=== PATIENT | female | born 1960 | race Two or more races ===

== ENCOUNTER 2017-10-23 15:56 | Emergency (ER) | payer BC ==
[2017-10-23 16:04] VITALS: BP 128/77
--- NOTE | 2017-10-23 16:15 | UC ---
Bite Injury/Animal HPI - HPI Summary HPI Summary: This is [facility] documenting for attending Ashly Villalta MD. Pt is a 57 y/o F presents to [facility] s/p being bitten by a ground bee last night around ~1800 while mowing the lawn. The bite is located on R inner foot. Per button sawyer, severity is rated a 6/10 and she says that she cannot tolerate the itching. Assoc. Sx: Pain, itching, warm. She has been icing the area which provides relief and took Benadryl and ibuprofen. Denies: SOB, VALADEZ, CP. Alleviating factors: Ice. She notes that the pain last night was rated a 15/10. She could not find the stinger in her foot. Overall she reveals that the area of redness is spreading and feels more warmth to the area - History of Current Complaint Chief Complaint: [place] Stated Complaint: BEE STING Time Seen by Provider: 10/23/17 16:03 Hx Obtained From: Patient Hx Last Menstrual Period: "10 years ago." ?: No Severity Initially: Moderate Pain Intensity: 6 Pain Scale Used: 0-10 Numeric Onset/Duration: Sudden Onset, Lasting Days, Still Present Type of Bite: Wild Animal - Bee Has Animal Been Immunized?: N/A Alleviating Factor(s): Other - ice Associated Signs And Symptoms: Positive: Erythema, Swelling. Negative: Fever Hx of Bite: Provoked by: - mowing lawn Animal Available for Observation: No Animal Control Notified: No - Allergies/Home Medications Allergies/Adverse Reactions: Allergies Allergy/AdvReac Type Severity Reaction Status Date / Time ivp dye Allergy Severe Itching Uncoded 10/23/17 16:04 PMH/Surg Hx/FS Hx/Imm Hx Other Endocrine History: NEGATIVE: DM. Other Cardiovascular History: NEGATIVE: CAD, HTN. 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 Substance Use Type: None Smoking Status (MU): Former Smoker Have You Smoked in the Last Year: No When Did the Patient Quit Smoking/Using Tobacco: 10 yrs - Immunization History Most Recent Tetanus Shot: june 2013 Hx Tetanus, Diphtheria Vaccination: Yes Vaccination Up to Date: Yes Review of Systems Constitutional: Negative - fever, chills Skin: Rash - Reaction to bite, L inner Foot Respiratory: Negative - SOB Cardiovascular: Negative - CP Gastrointestinal: Negative Genitourinary: Negative Motor: Negative Neurovascular: Negative Musculoskeletal: Negative Neurological: Negative Psychological: Negative All Other Systems Reviewed And Are Negative: Yes Physical Exam - Summary Physical Exam Summary: Appearance: Well-Appearing, No Pain Distress, Well-Nourished Eyes: conjunctiva clear, no discharge ENT: Hearing grossly normal, no muffled/hoarse voice. Neck: Normal, Supple Respiratory/Lung Sounds: Lungs clear, Normal breath sounds, No respiratory distress, No accessory muscle use Cardiovascular: RRR, No murmur Abdomen: Nontender, Soft, no guarding, not distended Musculoskeletal: Normal Neurological: Alert, muscle tone normal Psychiatric:Normal, age appropriate behavior Skin: Warm, Dry, Normal color. There is a 7x8 cm area of erythema located on inner L foot radiating up ankle, slightly tender and increased warmth. No stinger identified, no drainage noted Triage Information Reviewed: Yes Vital Signs: Initial Vital Signs Temp 96.7 F 10/23/17 16:02 Pulse 83 10/23/17 16:02 Resp 18 10/23/17 16:02 BP 128/77 10/23/17 16:02 Pulse Ox 100 10/23/17 16:02 Vital Signs Reviewed: Yes Bite Injury Course/Dx - Course Course Of Treatment: During the visit today, we discussed the findings and further plan. I will prescribe the medication to the pharmacy . Patient expressed understanding . - Differential Dx/Diagnosis Provider Diagnoses: Bee sting. Cellulitis Discharge - Sign-Out/Discharge Documenting (check all that apply): Patient Departure - Discharge Plan Condition: Stable Disposition: HOME Prescriptions: Cephalexin CAP* [Keflex CAP*] 500 mg PO TID 10 Days #30 cap Hydrocortisone 1% Oint(NF) [Hydrocortisone 1% Oint (NF)] 1 applic .SEE ORDER BID 5 Days #1 applic Patient Education Materials: Cellulitis (ED), Insect Bite or Sting (ED) Referrals: Kerry Julio MD [Primary Care Provider] - 2 Days Additional Instructions: RETURN TO URGENT CARE FOR ANY WORSENING OR NEW SYMPTOMS. - Billing Disposition and Condition Condition: STABLE Disposition: Home Images Feet (Multiple View): 1 - Area of redness
== END 2017-10-23 16:30 | disposition home or self-care (01) ==
LOC: UCEAST 15:56
DX: T63.441A Toxic effect of venom of bees, accidental (unintentional), initial encounter (principal); L03.115 Cellulitis of right lower limb; Z91.041 Radiographic dye allergy status; Z87.891 Personal history of nicotine dependence; Y92.9 Unspecified place or not applicable
CPT/HCPCS: 99212; G0463